=== PATIENT | female | born 1955 | race Caucasian/White ===

== ENCOUNTER 2020-02-06 23:51 | Emergency (ER) | payer OTHER ==
[~2020-02-06] VITALS: Ht 157.5 cm; Wt 41.0 kg
[~2020-02-06 23:51] MED LIST: ASCO100T12 MT; ATOR10TA PO; DORZ10DR17 OP; LATA2.5D2 EACHEYE; MULT-1116 MT
[2020-02-07 01:04] LABS: BASOPHILS % 0.4 % (0.0-2.0); EOSINOPHILS % 0.2 % (0.0-5.0); HEMATOCRIT. 35.8 % (36.0-48.0); LYMPHOCYTES % 28.2 % (20.0-50.0); MEAN CORPUSCULAR HEMOGLOBIN 28.2 pg (28.0-32.0); MEAN CORPUSCULAR VOLUME 84.2 fL (81.0-99.0); MEAN PLATELET VOLUME 7.3 fl (7.4-10.4); MONOCYTES % 5.3 % (2.0-8.0); NEUTROPHILS % 65.9 % (40.0-76.0); PLATELET 261 x1000/uL (130-400); RED BLOOD CELL COUNT 4.25 mill/uL (4.2-5.4); RED CELL DISTRIBUTION WIDTH 13.1 % (11.6-14.6)
[2020-02-07 01:07] LABS: CHLORIDE 108 mEq/L (98-107)
[2020-02-07 01:10] VITALS: BP 166/74
== END 2020-02-07 03:58 | disposition home or self-care (01) ==
LOC: ER 23:51
DX: R00.2 Palpitations (principal); Z63.4 Disappearance and death of family member; I10 Essential (primary) hypertension
CPT/HCPCS: 36415; 80053; 83880; 84443; 84484; 85025; 93005; 99284

== ENCOUNTER 2022-11-14 10:20 | Emergency (ER) | payer MEDICARE, MEDICAID ==
[~2022-11-14] VITALS: Ht 157.5 cm; Wt 44.0 kg
[~2022-11-14 10:20] MED LIST changes: +LATA2.5D14 EACHEYE; -LATA2.5D2 EACHEYE
[2022-11-14] MEDS ORDERED: KETOROLAC 30MG/ML VIAL IM NR (14:30)
[2022-11-14] MEDS ORDERED: ACET-2708 MT (15:33)
[2022-11-14 16:19] VITALS: BP 139/85
== END 2022-11-14 16:26 | disposition home or self-care (01) ==
LOC: ER 10:40
DX: M79.602 Pain in left arm (principal); M25.562 Pain in left knee; M25.561 Pain in right knee; E78.00 Pure hypercholesterolemia, unspecified; W01.0XXA Fall on same level from slipping, tripping and stumbling without subsequent striking against object, initial encounter; Y93.89 Activity, other specified; Y92.89 Other specified places as the place of occurrence of the external cause; Y99.8 Other external cause status; I10 Essential (primary) hypertension
CPT/HCPCS: 29105; 73030; 73060; 73070; 73090; 96372; 99283; J1885; A4565